=== PATIENT | male | born 1970 | race Caucasian/White ===

== ENCOUNTER 2020-08-28 16:27 | Emergency (ER) | payer SELFPAY ==
[2020-08-28] MEDS ORDERED: Acetaminophen 500 MG Tab PO ONE (18:05)
[2020-08-28] MEDS ORDERED: Ibuprofen 400 MG Tab PO ONE (18:05)
[2020-08-28] MEDS ORDERED: Diphtheria,Pertussis(Acell),Tetanus Vaccine 0.5 ML Syringe IM ONE (18:06)
[2020-08-28] MEDS ORDERED: Tetracaine HCl/PF 0.5% 4 ML Bottle EYEBOTH ONE (18:06)
--- NOTE | 2020-08-28 19:43 | EDM.PDOC ---
ED HPI GENERAL MEDICAL PROBLEM - General Chief Complaint: ENT Problem Stated Complaint: SOMETHING IN EYE Time Seen by Provider: 08/28/20 17:01 Source of Information: Reports: Patient History Limitations: Reports: No Limitations - History of Present Illness INITIAL COMMENTS - FREE TEXT/NARRATIVE: 50/M w/no PMH presenting with chemical injury to R eye. Was working with a muffler sealant when accidentally got this into his R eye. Irrigated immediately on-scene for at least 15 minutes before coming to the ED. Product was muffler sealant, major ingredient sodium silicate. Arrives complaining of decreased vision to R eye with redness and drainage. Does not wear contacts, no prior ophthalmologic surgeries, unknown tetanus status. ROS: A 10-point review of systems was negative, except as noted in the HPI (or in the ROS section of this note). Past medical history: Reviewed, no additional pertinent history. Surgical history: Reviewed in system, no additional pertinent history. Social history: Reviewed in system, no additional pertinent history. Family history: Reviewed in system, no additional pertinent history. PHYSICAL EXAM Vital signs reviewed. Nursing notes reviewed. Constitutional: Awake, alert, non-distressed. Head: Normocephalic, atraumatic. Eyes: R sclera injected and edematous. PERRL @ 3 mm b/l. IOPs 18 OS, 19 OD. Slit lamp shows corneal peeling to R eye, diffuse scattered fluorescein uptake. Lid and lashes normal. R eye able to read signs and name badge. 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 Ears, Nose, Throat: External ears and nose normal, moist oral mucosa. Cardiovascular: 2+ radial pulse, capillary refill less than 2 seconds. Pulmonary: normal work of breathing, no accessory muscle use. Abdomen/GI: Soft, nontender, nondistended, no guarding or rigidity, no masses. Musculoskeletal: No deformities. Integumentary: Appropriate color for ethnicity, warm, dry, no pallor or jaundice, no rash. Neurologic: Alert, answering questions appropriately, normal speech, no facial droop, moving all extremities well. Psychiatric: Appropriate mood and affect, normal thought process. right eye Pain Score (Numeric/FACES): 3 - Related Data Allergies Allergy/AdvReac Type Severity Reaction Status Date / Time No Known Allergies Allergy Verified 08/28/20 17:11 Home Meds: Home Meds Acetaminophen [Acetaminophen Extra Strength] 500 - 1,000 mg PO Q6H PRN #30 tablet 08/28/20 [Rx] Erythromycin Base [Erythromycin 0.5% Ophth Oint] 1 applic OP BEDTIME #1 tube 08/28/20 [Rx] Ketorolac [Acular 0.5% Ophth Soln] 1 drop OP Q4H PRN #1 bottle 08/28/20 [Rx] Sulfacetamide [Bleph-10 Ophth Soln] 1 drop EYERT Q3H #1 bottle 08/28/20 [Rx] Past Medical History - Past Health History Medical/Surgical History: Denies Medical/Surgical History - Infectious Disease History Infectious Disease History: Reports: None Social & Family History - Tobacco Use Smoking Status *Q: Current Every Day Smoker Years of Tobacco use: 20 Packs/Tins Daily: 0.2 - Alcohol Use Days Per Week of Alcohol Use: 4 Number of Drinks Per Day: 4 Total Drinks Per Week: 16 - Recreational Drug Use Recreational Drug Use: No ED ROS ENT - Review of Systems Review Of Systems: See Below ED EXAM, ENT - Physical Exam Exam: See Below Eye Exam: Right Eye: Conjunctival Injection, Corneal Abrasion, Vision Changes, Bilateral Eye: EOMI, PERRL Course - Vital Signs Text/Narrative:: Chemical injury to R eye. Immediately taken to eye wash station, washed for 15 additional minutes while [place] [facility] contacted. Given information on chemical involved. They could not determine if acidic or basic. Recommended usual copious irrigation, ocular pH measurement with goal of 7.0, ophthalmology consultation, etc. Obtained pH of 7.5. Able to count fingers only with right eye, cannot read. Spoke with on-call firearms sales associate Dr. Ayush Borjas who states that the pH of 7.5 is acceptable after total of 30 minutes of irrigation and none further was needed. Recommends obtaining IOPs and slit lamp exam, eye shield, evaluation for corneal abrasion, and he will see the patient in clinic tomorrow morning for follow-up. Tetanus booster given. Tetracaine applied. IOPs normal. Slit lamp exam of right eye shows corneal peeling, patchy diffuse fluorescein uptake. Normal iris and pupil. Vision slightly improved, now able to read with R eye. Eye patch placed per ophthalmology recommendations. Plan to DC home with urgent next-day ophthalmology follow-up. Rx sent for erythromycin ointment, sulfacetamide and ketorolac drops, acetaminophen, ibuprofen. Plan: Patient is stable to discharge home with outpatient ophthalmology clinic follow-up. Strict emergency department return precautions were provided, patient indicated understanding. All questions were answered prior to departure. Discharged in good condition. Last Recorded V/S: Last Vital Signs Temp 36.2 C 08/28/20 17:08 Pulse 92 08/28/20 17:08 Resp 15 08/28/20 17:08 BP 169/89 H 08/28/20 17:08 Pulse Ox 96 08/28/20 17:08 - Orders/Labs/Meds Orders: Active Orders 24 hr Category Date Time Status Vaccines to be Administered [RC] PER UNIT ROUTINE Care 08/28/20 18:06 Active Visual Acuity [Vision Test] [RC] ASDIRECTED Care 08/28/20 17:01 Active Meds: Medications Discontinued Medications Generic Name Dose Route Start Last Admin Trade Name Delgadoq PRN Reason Stop Dose Admin Acetaminophen 1,000 mg 08/28/20 18:05 08/28/20 18:23 Tylenol Extra Strength PO 08/28/20 18:06 1,000 mg ONETIME ONE Administration Diphtheria/Tetanus/Acell Pertussis 0.5 ml 08/28/20 18:06 08/28/20 18:24 Adacel IM 08/28/20 18:07 0.5 ml .ONCE ONE Administration Ibuprofen 400 mg 08/28/20 18:05 08/28/20 18:23 Motrin PO 08/28/20 18:06 400 mg ONETIME ONE Administration Tetracaine HCl 1 ml 08/28/20 18:06 08/28/20 18:23 Tetracaine 0.5% Steri-Unit Marcia EYEBOTH 08/28/20 18:07 1 each ASDIRECTED ONE Administration Departure - Departure Time of Disposition: 19:38 Disposition: Home, Self-Care 01 Condition: Good Clinical Impression: Chemical insult, eye Qualifiers: Encounter type: initial encounter Laterality: right Qualified Code(s): T26.91XA - Corrosion of right eye and adnexa, part unspecified, initial encounter - Discharge Information *PRESCRIPTION DRUG MONITORING PROGRAM REVIEWED*: Not Applicable *COPY OF PRESCRIPTION DRUG MONITORING REPORT IN PATIENT SHAKILA: Not Applicable Prescriptions: Acetaminophen [Acetaminophen Extra Strength] 500 - 1,000 mg PO Q6H PRN #30 tablet PRN Reason: Pain (Mild 1-3) Ketorolac [Acular 0.5% Ophth Soln] 1 drop OP Q4H PRN #1 bottle PRN Reason: Pain (Moderate 4-6) Sulfacetamide [Bleph-10 Ophth Soln] 1 drop EYERT Q3H #1 bottle Erythromycin Base [Erythromycin 0.5% Ophth Oint] 1 applic OP BEDTIME #1 tube Instructions: Chemical Burn of the Eyes, Adult Referrals: Ayush Borjas MD [Ordering Only Provider] - 1 Day (For follow-up eye care.) Forms: ED Department Discharge Additional Instructions: You were seen in the emergency department for a chemical injury to the right eye. We are going to prescribe you an antibiotic eye ointment and antibiotic eyedrops along with painkilling eyedrops and some Tylenol. It is very important you follow-up with the firearms sales associate tomorrow morning. Call the phone number provided for the clinic and Dr. Borjas will tell you when he wants to see you in the morning. Warning signs to come back to the ER include worsening pain or severe vision changes or any other new or concerning symptoms. Please return the emergency department immediately if your symptoms worsen or if you feel worse. Thank you for choosing the [facility] emergency department in [place] for your medical needs today. It was a pleasure caring for you. The following information is given to patients seen in the emergency department who are being discharged. This information is to outline your options for follow-up care. We provide all patients seen in our emergency department with a follow-up referral. The need for follow-up, as well as the timing and circumstances, are variable depending upon the specifics of your emergency department visit. If you don't have a primary care physician on staff, we will provide you with a referral. We always advise you to contact your personal physician following an emergency department visit to inform them of the circumstance of the visit and for follow-up with them and/or the need for any referrals to a consulting specialist. The emergency department will also refer you to a specialist when appropriate. This referral assures that you have the opportunity for follow-up care with a specialist. All of these measure are taken in an effort to provide you with optimal care, which includes your follow-up. Under all circumstances we always encourage you to contact your private physician who remains a resource for coordinating your care. When calling for follow-up care, please make the office aware that this follow-up is from your recent emergency room visit. If for any reason you are refused follow-up, please contact the [facility] Emergency Department at and asked to speak to the emergency department charge nurse. If you do not have a primary care physician that is caring for you, you can contact these clinics below to set up an appointment to establish care: [facility] - Primary Care [address] [place] [id number] [facility] [address] [place] [address] Sepsis Event Note (ED) - Evaluation Sepsis Screening Result: No Definite Risk - Focused Exam Vital Signs: Vital Signs Temp Pulse Resp BP Pulse Ox 08/28/20 17:08 36.2 C 92 15 169/89 H 96 - My Orders Last 24 Hours: My Active Orders 08/28/20 17:01 Visual Acuity [Vision Test] [RC] ASDIRECTED 08/28/20 18:06 Vaccines to be Administered [RC] PER UNIT ROUTINE - Assessment/Plan Last 24 Hours: My Active Orders 08/28/20 17:01 Visual Acuity [Vision Test] [RC] ASDIRECTED 08/28/20 18:06 Vaccines to be Administered [RC] PER UNIT ROUTINE
== END 2020-08-28 19:50 | disposition home or self-care (01) ==
LOC: MW.ED 16:27
DX: T26.91XA Corrosion of right eye and adnexa, part unspecified, initial encounter (principal); F17.210 Nicotine dependence, cigarettes, uncomplicated; Z23 Encounter for immunization
CPT/HCPCS: 90471; 90715; 99283; A9270

== ENCOUNTER 2023-05-12 21:11 | Emergency (ER) | payer SELFPAY | END 2023-05-12 21:44 | LOC: MW.ED 21:11 | DX: F10.10 Alcohol abuse, uncomplicated (principal); Z02.89 Encounter for other administrative examinations | CPT/HCPCS: 99282 ==

== ENCOUNTER 2024-04-21 22:20 | Emergency (ER) | payer MEDICAID ==
[2024-04-21] MEDS: Thiamine 200 MG/2 ML MDV IVPUSH ONE (22:40)
[2024-04-21] MEDS: Sodium Chloride 0.9% 1,000 ML IV ONE (22:40)
[2024-04-21] MEDS: Sodium Chloride 0.9% 10 ML Syringe FLUSH PRN (22:41)
[2024-04-21] MEDS: Sodium Chloride 0.9% 2.5 ML Syringe FLUSH PRN (22:41)
[2024-04-21 22:44] LABS: BASOPHILS ABSOLUTE AUTO 0.04 K/uL (0.00-0.20); BASOPHILS PERCENT AUTO 0.7 % (0.0-1.0); EOSINOPHILS ABSOLUTE AUTO 0.09 K/uL (0.00-0.45); EOSINOPHILS PERCENT AUTO 1.5 % (0.0-6.0); HEMATOCRIT 40.2 % (42.0-52.0); IMMATURE GRAN ABSOLUTE AUTO 0.02 K/uL (0.00-0.05); IMMATURE GRAN PERCENT AUTO 0.3 % (0.0-0.4); LYMPHOCYTES ABSOLUTE AUTO 1.61 K/uL (1.00-4.80); MEAN CORPUSCULAR HEMOGLOBIN 33.9 pg (28.0-32.0); MEAN CORPUSCULAR HGB CONC 34.8 g/dL (32.0-36.0); MEAN CORPUSCULAR VOLUME 97.3 fL (83.0-99.0); MONOCYTES PERCENT AUTO 11.7 % (0.0-8.0); NEUTROPHILS ABSOLUTE AUTO 3.51 K/uL (1.80-7.70); NEUTROPHILS PERCENT AUTO 58.8 % (41.0-71.0); PLATELET COUNT,PLT 113 K/uL (150-400); RED BLOOD CELL COUNT 4.13 M/uL (4.52-5.90); WHITE BLOOD CELL COUNT,WBC 5.97 K/uL (3.9-11.3)
[2024-04-21 22:54] LABS: ALANINE AMINOTRANSFERASE,ALT 118 IU/L (14-63); ALBUMIN 3.7 g/dL (3.4-5.0); ALKALINE PHOSPHATASE 113 U/L (46-116); ASPARTATE AMNIOTRANSFERASE,AST 150 IU/L (15-37); BILIRUBIN TOTAL 0.5 mg/dL (0.2-1.0); BLOOD UREA NITROGEN,BUN 13 mg/dL (7.0-18.0); CALCIUM 9.3 mg/dL (8.5-10.1); CARBON DIOXIDE,CO2 22.8 mmol/L (21.0-32.0); CHLORIDE,CL 98 mmol/L (98-107); CREATININE 1.1 mg/dL (0.8-1.3); EST CRCL DRUG DOSING (CG) 83.73 mL/min; GLUCOSE RANDOM 137 mg/dL (74-106); POTASSIUM,K 3.7 mmol/L (3.5-5.1); PROTEIN TOTAL,TP 7.5 g/dL (6.4-8.2); SODIUM,NA 137 mmol/L (136-148)
[2024-04-21 22:57] LABS: ESTIMATED GFR 80 mL/min (>60); ETHANOL BLOOD MEDICAL < 3.0 mg/dL
[2024-04-21] MEDS: Folic Acid 1 MG Tab PO ONE (23:23)
[2024-04-22 00:01] LABS: APPEARANCE,URINE CLEAR; BILIRUBIN,URINE NEGATIVE (NEGATIVE); COLOR,URINE YELLOW; GLUCOSE,URINE NEGATIVE (NEGATIVE); KETONES,URINE NEGATIVE (NEGATIVE); LEUKOCYTE ESTERASE,URINE NEGATIVE (NEGATIVE); NITRITE,URINE NEGATIVE (NEGATIVE); OCCULT BLOOD,URINE NEGATIVE (NEGATIVE); PROTEIN,URINE 30 mg/dL (NEGATIVE); UROBILINOGEN,URINE 0.2 EU/dL (<2.0)
[2024-04-22 00:05] LABS: AMPHETAMINES SCREEN, URINE NEGATIVE (CUTOFF=500); BARBITURATE SCREEN,URINE NEGATIVE (CUTOFF=200); BENZODIAZEPINES SCREEN,URINE NEGATIVE (CUTOFF=150); BUPRENORPHINE SCREEN,URINE NEGATIVE (CUTOFF=10); METHADONE SCREEN, URINE NEGATIVE (CUTOFF=200); METHAMPHETAMINES SCREEN, URINE NEGATIVE (CUTOFF=500); OXYCODONE SCREEN,URINE NEGATIVE (CUT0FF=100); PCP SCREEN,URINE NEGATIVE (CUTOFF=25); THC SCREEN,URINE 20 NG/ML NEGATIVE (CUTOFF=50)
[2024-04-22 00:13] LABS: RBC,URINE 0-1 (0-2/HPF)
[2024-04-22 00:14] LABS: BACTERIA,URINE RARE (NEGATIVE); EPITHELIAL CELLS,URINE RARE (NONE-FEW); WBC,URINE NONE SEEN (0-5/HPF)
[2024-04-22] MEDS: chlordiazePOXIDE 25 MG Cap PO ONE (00:37)
== END 2024-04-22 00:39 ==
LOC: MW.ED 22:20
DX: S01.01XA Laceration without foreign body of scalp, initial encounter (principal); R56.9 Unspecified convulsions; F10.120 Alcohol abuse with intoxication, uncomplicated; Z79.899 Other long term (current) drug therapy; Z75.8 Other problems related to medical facilities and other health care; X58.XXXA Exposure to other specified factors, initial encounter
CPT/HCPCS: 12001; 36415; 70450; 70450-26; 72125; 72125-26; 80053; 80305-QW; 80307; 81001; 85025; 93005; 96361; 96374; 96375; 99285-25; A9270-GY; J3360; J3411; J3490; J7030

== ENCOUNTER 2024-04-27 08:45 | Inpatient (IN) | payer MEDICAID ==
[2024-04-27 08:58] LABS: BASOPHILS ABSOLUTE AUTO 0.07 K/uL (0.00-0.20); BASOPHILS PERCENT AUTO 1.1 % (0.0-1.0); EOSINOPHILS ABSOLUTE AUTO 0.05 K/uL (0.00-0.45); EOSINOPHILS PERCENT AUTO 0.8 % (0.0-6.0); HEMATOCRIT 38.4 % (42.0-52.0); HEMOGLOBIN 13.5 g/dL (14.0-18.0); IMMATURE GRAN ABSOLUTE AUTO 0.02 K/uL (0.00-0.05); IMMATURE GRAN PERCENT AUTO 0.3 % (0.0-0.4); LYMPHOCYTES ABSOLUTE AUTO 1.88 K/uL (1.00-4.80); LYMPHOCYTES PERCENT AUTO 29.2 % (24.0-44.0); MEAN CORPUSCULAR HGB CONC 35.2 g/dL (32.0-36.0); MEAN CORPUSCULAR VOLUME 96.7 fL (83.0-99.0); MEAN PLATELET VOLUME 9.5 fL (9.4-12.4); MONOCYTES ABSOLUTE AUTO 0.82 K/uL (0.00-0.80); MONOCYTES PERCENT AUTO 12.7 % (0.0-8.0); NEUTROPHILS PERCENT AUTO 55.9 % (41.0-71.0); PLATELET COUNT,PLT 178 K/uL (150-400); RED BLOOD CELL COUNT 3.97 M/uL (4.52-5.90); WHITE BLOOD CELL COUNT,WBC 6.44 K/uL (3.9-11.3)
[2024-04-27] MEDS: Sodium Chloride 0.9% 10 ML Syringe FLUSH PRN (09:12)
[2024-04-27] MEDS: Sodium Chloride 0.9% 2.5 ML Syringe FLUSH PRN (09:12)
[2024-04-27] MEDS: Sodium Chloride 0.9% 1,000 ML IV ONE (09:12)
[2024-04-27] MEDS: Ondansetron 4 MG/2 ML SDV IVPUSH ONE (09:12)
[2024-04-27 09:22] LABS: ACETAMINOPHEN <2.0 ug/mL; ALANINE AMINOTRANSFERASE,ALT 114 IU/L (14-63); ALBUMIN 3.7 g/dL (3.4-5.0); ALKALINE PHOSPHATASE 95 U/L (46-116); ASPARTATE AMNIOTRANSFERASE,AST 65 IU/L (15-37); BILIRUBIN TOTAL 0.3 mg/dL (0.2-1.0); BLOOD UREA NITROGEN,BUN 6 mg/dL (7.0-18.0); CALCIUM 8.9 mg/dL (8.5-10.1); CARBON DIOXIDE,CO2 27.5 mmol/L (21.0-32.0); CHLORIDE,CL 105 mmol/L (98-107); CREATINE KINASE,CK 327 U/L (26-308); CREATININE 0.9 mg/dL (0.8-1.3); EST CRCL DRUG DOSING (CG) 98.21 mL/min; GLUCOSE RANDOM 93 mg/dL (74-106); LIPASE 25 U/L (16-77); MAGNESIUM 1.9 mg/dL (1.8-2.4); POTASSIUM,K 3.8 mmol/L (3.5-5.1); PROTEIN TOTAL,TP 7.4 g/dL (6.4-8.2); SALICYLATE 2.5 mg/dL (0.0-20.0); SODIUM,NA 142 mmol/L (136-148)
[2024-04-27 09:24] LABS: ESTIMATED GFR 101 mL/min (>60)
[2024-04-27] MEDS ORDERED: PHENobarbitaL sodium 260 MG in Sodium Chloride 0.9% 100 ML IV PRN (12:20)
[2024-04-27] MEDS ORDERED: PHENobarbital Sodium 130 MG/ML SDV IVPUSH PRN (12:21)
[2024-04-27] MEDS ORDERED: Thiamine 100 MG in Sodium Chloride 0.9% 100 ML IV SCH (12:30)
[2024-04-27] MEDS ORDERED: Polyethylene Glycol 3350 Powder 17 GM Packet PO PRN (12:35)
[2024-04-27] MEDS ORDERED: Ondansetron 4 MG/2 ML SDV IVPUSH PRN (12:35)
[2024-04-27] MEDS ORDERED: Acetaminophen 325 MG Tab PO PRN (12:35)
[2024-04-27] MEDS ORDERED: Melatonin 3 MG Tab PO PRN (12:35)
[2024-04-27] MEDS ORDERED: PHENobarbital 32.4 MG Tab PO PRN ×3 (12:35→12:38)
[2024-04-27] MEDS: Sodium Chloride 0.9% 1,000 ML IV SCH ×2 (13:03→13:38)
[2024-04-27] MEDS: Pantoprazole 40 MG in Sodium Chloride 0.9% 10 ML IVPUSH SCH (13:04)
[2024-04-27] MEDS: Thiamine 200 MG/2 ML MDV IVPUSH SCH (13:05)
[2024-04-27] MEDS: Folic Acid 1 MG/0.2 ML UD Syringe IV SCH (13:05)
[2024-04-27] MEDS: Heparin Sodium 5,000 Units/ML Vial SUBCUT SCH (20:39)
[2024-04-28 05:50] LABS: BASOPHILS ABSOLUTE AUTO 0.08 K/uL (0.00-0.20); BASOPHILS PERCENT AUTO 1.3 % (0.0-1.0); EOSINOPHILS ABSOLUTE AUTO 0.15 K/uL (0.00-0.45); EOSINOPHILS PERCENT AUTO 2.5 % (0.0-6.0); HEMATOCRIT 36.4 % (42.0-52.0); HEMOGLOBIN 12.6 g/dL (14.0-18.0); IMMATURE GRAN ABSOLUTE AUTO 0.03 K/uL (0.00-0.05); IMMATURE GRAN PERCENT AUTO 0.5 % (0.0-0.4); LYMPHOCYTES ABSOLUTE AUTO 1.51 K/uL (1.00-4.80); LYMPHOCYTES PERCENT AUTO 25.2 % (24.0-44.0); MEAN CORPUSCULAR HEMOGLOBIN 33.8 pg (28.0-32.0); MEAN CORPUSCULAR HGB CONC 34.6 g/dL (32.0-36.0); MEAN CORPUSCULAR VOLUME 97.6 fL (83.0-99.0); MEAN PLATELET VOLUME 9.6 fL (9.4-12.4); NEUTROPHILS ABSOLUTE AUTO 3.32 K/uL (1.80-7.70); NEUTROPHILS PERCENT AUTO 55.5 % (41.0-71.0); PLATELET COUNT,PLT 175 K/uL (150-400); RED BLOOD CELL COUNT 3.73 M/uL (4.52-5.90); WHITE BLOOD CELL COUNT,WBC 5.99 K/uL (3.9-11.3)
[2024-04-28 06:25] LABS: A/G RATIO 0.8 (0.9-1.6); ALBUMIN 2.6 g/dL (3.4-5.0); BILIRUBIN TOTAL 0.6 mg/dL (0.2-1.0); CALCIUM 8.1 mg/dL (8.5-10.1); CARBON DIOXIDE,CO2 29.2 mmol/L (21.0-32.0); CREATININE 0.8 mg/dL (0.8-1.3); EST CRCL DRUG DOSING (CG) 106.87 mL/min; MAGNESIUM 1.7 mg/dL (1.8-2.4); PHOSPHORUS 3.6 mg/dL (2.6-4.7); POTASSIUM,K 4.7 mmol/L (3.5-5.1); PROTEIN TOTAL,TP 5.8 g/dL (6.4-8.2)
[2024-04-28] MEDS: Magnesium Sulfate/Water 2 GM in Premix Bag 1 BAG IV ONE (10:35)
== END 2024-04-28 18:35 | disposition home or self-care (01) | DRG 897 ==
LOC: MW.ED 08:45 → MW.MS 11:58
PROVIDERS: ADMIT Family Medicine; ATTEND Family Medicine
DX: F10.90 Alcohol use, unspecified, uncomplicated (principal); R56.9 Unspecified convulsions; F17.210 Nicotine dependence, cigarettes, uncomplicated
CPT/HCPCS: 36415; 70450; 70450-26; 72125; 72125-26; 80053; 80143; 80179; 80307; 82140; 82550; 83690; 83735; 84100; 84484; 85025; 93005; 93010; 96374; 99222; 99239; 99285; 99285-25; C9113; J1644; J2405; J2560; J3411; J3475; J3490; J7030

== ENCOUNTER 2024-06-17 01:19 | Emergency (ER) | payer MEDICAID ==
[2024-06-17 01:31] LABS: BASOPHILS ABSOLUTE AUTO 0.06 K/uL (0.00-0.20); BASOPHILS PERCENT AUTO 0.5 % (0.0-1.0); EOSINOPHILS PERCENT AUTO 1.8 % (0.0-6.0); HEMATOCRIT 41.2 % (42.0-52.0); HEMOGLOBIN 14.4 g/dL (14.0-18.0); IMMATURE GRAN ABSOLUTE AUTO 0.03 K/uL (0.00-0.05); IMMATURE GRAN PERCENT AUTO 0.3 % (0.0-0.4); LYMPHOCYTES ABSOLUTE AUTO 2.85 K/uL (1.00-4.80); MEAN CORPUSCULAR HEMOGLOBIN 33.3 pg (28.0-32.0); MEAN CORPUSCULAR VOLUME 95.2 fL (83.0-99.0); MEAN PLATELET VOLUME 9.2 fL (9.4-12.4); MONOCYTES ABSOLUTE AUTO 1.21 K/uL (0.00-0.80); MONOCYTES PERCENT AUTO 10.6 % (0.0-8.0); NEUTROPHILS ABSOLUTE AUTO 7.06 K/uL (1.80-7.70); NEUTROPHILS PERCENT AUTO 61.8 % (41.0-71.0); PLATELET COUNT,PLT 208 K/uL (150-400); RED BLOOD CELL COUNT 4.33 M/uL (4.52-5.90); WHITE BLOOD CELL COUNT,WBC 11.41 K/uL (3.9-11.3)
[2024-06-17] MEDS: methylPREDNISolone Sodium Succinate 125 MG/2 ML SDV IVPUSH ONE (01:31)
[2024-06-17] MEDS: Albuterol/Ipratropium 3.0-0.5 MG/3 ML Neb Soln NEB STA (01:31)
[2024-06-17] MEDS: Albuterol/Ipratropium 3.0-0.5 MG/3 ML Neb Soln ONE (01:32)
[2024-06-17 02:15] LABS: A/G RATIO 1.3 (0.9-1.6); ALBUMIN 4.3 g/dL (3.4-5.0); BILIRUBIN TOTAL 0.7 mg/dL (0.2-1.0); CALCIUM 9.1 mg/dL (8.5-10.1); CARBON DIOXIDE,CO2 26.9 mmol/L (21.0-32.0); CREATININE 1.4 mg/dL (0.8-1.3); EST CRCL DRUG DOSING (CG) 61.43 mL/min; MAGNESIUM 2.1 mg/dL (1.8-2.4); POTASSIUM,K 3.5 mmol/L (3.5-5.1); PROTEIN TOTAL,TP 7.7 g/dL (6.4-8.2)
[2024-06-17] MEDS: Sodium Chloride 0.9% 1,000 ML IV ONE (02:31)
== END 2024-06-17 03:20 | disposition home or self-care (01) ==
LOC: MW.ED 01:19
DX: J20.9 Acute bronchitis, unspecified (principal); N17.9 Acute kidney failure, unspecified; Z79.899 Other long term (current) drug therapy
CPT/HCPCS: 36415; 71045; 80053; 83735; 83880; 84484; 85025; 93005; 96361; 96374; 99285; J2919; J7030; 93010; 99284; J7620-GY

== ENCOUNTER 2024-11-17 17:20 | Emergency (ER) | payer MEDICAID ==
[2024-11-17 18:03] LABS: BASOPHILS ABSOLUTE AUTO 0.03 K/uL (0.00-0.20); BASOPHILS PERCENT AUTO 0.4 % (0.0-1.0); EOSINOPHILS ABSOLUTE AUTO 0.06 K/uL (0.00-0.45); EOSINOPHILS PERCENT AUTO 0.8 % (0.0-6.0); HEMATOCRIT 44.1 % (42.0-52.0); HEMOGLOBIN 15.5 g/dL (14.0-18.0); IMMATURE GRAN ABSOLUTE AUTO 0.02 K/uL (0.00-0.05); IMMATURE GRAN PERCENT AUTO 0.3 % (0.0-0.4); LYMPHOCYTES PERCENT AUTO 37.7 % (24.0-44.0); MEAN CORPUSCULAR HEMOGLOBIN 32.4 pg (28.0-32.0); MEAN CORPUSCULAR HGB CONC 35.1 g/dL (32.0-36.0); MEAN CORPUSCULAR VOLUME 92.3 fL (83.0-99.0); MEAN PLATELET VOLUME 9.5 fL (9.4-12.4); MONOCYTES ABSOLUTE AUTO 0.86 K/uL (0.00-0.80); NEUTROPHILS PERCENT AUTO 48.8 % (41.0-71.0); PLATELET COUNT,PLT 175 K/uL (150-400); RED BLOOD CELL COUNT 4.78 M/uL (4.52-5.90); WHITE BLOOD CELL COUNT,WBC 7.17 K/uL (3.9-11.3)
[2024-11-17 18:14] LABS: A/G RATIO 1.1 (0.9-1.6); ALBUMIN 4.1 g/dL (3.4-5.0); BILIRUBIN TOTAL 0.5 mg/dL (0.2-1.0); CALCIUM 9.3 mg/dL (8.5-10.1); CARBON DIOXIDE,CO2 21.8 mmol/L (21.0-32.0); CREATININE 1.1 mg/dL (0.8-1.3); EST CRCL DRUG DOSING (CG) 83.28 mL/min; POTASSIUM,K 3.9 mmol/L (3.5-5.1); PROTEIN TOTAL,TP 7.8 g/dL (6.4-8.2)
[2024-11-17] MEDS: Sodium Chloride 0.9% 1,000 ML IV ONE (18:23)
[2024-11-17 18:33] LABS: APPEARANCE,URINE CLEAR; BILIRUBIN,URINE NEGATIVE (NEGATIVE); COLOR,URINE YELLOW; GLUCOSE,URINE NEGATIVE (NEGATIVE); KETONES,URINE NEGATIVE (NEGATIVE); LEUKOCYTE ESTERASE,URINE NEGATIVE (NEGATIVE); NITRITE,URINE NEGATIVE (NEGATIVE); OCCULT BLOOD,URINE NEGATIVE (NEGATIVE); PROTEIN,URINE 30 mg/dL (NEGATIVE); UROBILINOGEN,URINE 0.2 EU/dL (<2.0)
[2024-11-17 18:43] LABS: EPITHELIAL CELLS,URINE NOT SEEN (NONE-FEW); RBC,URINE 0-2 (0-2/HPF); WBC,URINE 0-1 (0-5/HPF)
[2024-11-17 18:44] LABS: BACTERIA,URINE RARE (NEGATIVE); MUCUS,URINE LIGHT (NONE-MOD)
== END 2024-11-17 19:23 | disposition home or self-care (01) ==
LOC: EDBD → MERGE 17:20 → MW.ED 17:20
DX: R56.9 Unspecified convulsions (principal); Z75.8 Other problems related to medical facilities and other health care
CPT/HCPCS: 36415; 70450; 72125; 80053; 80307; 81001; 82947; 83605; 85025; 96361; 96374; 99284; J1953; J7030

== ENCOUNTER 2025-03-29 03:44 | Emergency (ER) | payer MEDICAID ==
[2025-03-29 04:25] LABS: BASOPHILS ABSOLUTE AUTO 0.06 K/uL (0.00-0.20); BASOPHILS PERCENT AUTO 0.7 % (0.0-1.0); EOSINOPHILS ABSOLUTE AUTO 0.09 K/uL (0.00-0.45); EOSINOPHILS PERCENT AUTO 1.1 % (0.0-6.0); HEMATOCRIT 41.9 % (42.0-52.0); HEMOGLOBIN 14.7 g/dL (14.0-18.0); IMMATURE GRAN ABSOLUTE AUTO 0.03 K/uL (0.00-0.05); IMMATURE GRAN PERCENT AUTO 0.4 % (0.0-0.4); LYMPHOCYTES ABSOLUTE AUTO 2.83 K/uL (1.00-4.80); LYMPHOCYTES PERCENT AUTO 35.3 % (24.0-44.0); MEAN CORPUSCULAR HEMOGLOBIN 32.2 pg (28.0-32.0); MEAN CORPUSCULAR HGB CONC 35.1 g/dL (32.0-36.0); MEAN CORPUSCULAR VOLUME 91.7 fL (83.0-99.0); MEAN PLATELET VOLUME 9.1 fL (9.4-12.4); MONOCYTES ABSOLUTE AUTO 0.44 K/uL (0.00-0.80); MONOCYTES PERCENT AUTO 5.5 % (0.0-8.0); NEUTROPHILS ABSOLUTE AUTO 4.56 K/uL (1.80-7.70); PLATELET COUNT,PLT 168 K/uL (150-400); RED BLOOD CELL COUNT 4.57 M/uL (4.52-5.90); WHITE BLOOD CELL COUNT,WBC 8.01 K/uL (3.9-11.3)
[2025-03-29 04:46] LABS: BLOOD UREA NITROGEN,BUN 12 mg/dL (7.0-18.0); CALCIUM 9.1 mg/dL (8.5-10.1); CARBON DIOXIDE,CO2 28.3 mmol/L (21.0-32.0); CHLORIDE,CL 102 mmol/L (98-107); ESTIMATED GFR 89 mL/min (>60); ETHANOL BLOOD MEDICAL 201 mg/dL; GLUCOSE RANDOM 112 mg/dL (74-106); POTASSIUM,K 3.9 mmol/L (3.5-5.1); SODIUM,NA 140 mmol/L (136-148)
[2025-03-29] MEDS: Diphtheria,Pertussis(Acell),Tetanus Vaccine 0.5 ML Syringe IM ONE (04:51)
[2025-03-29] MEDS: Acetaminophen 325 MG Tab PO ONE (04:51)
[2025-03-29] MEDS: Lidocaine 1% 5 ML VIAL INJECT ONE (04:52)
[2025-03-29] MEDS: Cephalexin 500 MG Cap PO ONE (05:07)
== END 2025-03-29 05:18 | disposition home or self-care (01) ==
LOC: MW.ED 03:44
DX: S01.01XA Laceration without foreign body of scalp, initial encounter (principal); S01.81XA Laceration without foreign body of other part of head, initial encounter; S40.811A Abrasion of right upper arm, initial encounter; S40.812A Abrasion of left upper arm, initial encounter; S80.812A Abrasion, left lower leg, initial encounter; S80.811A Abrasion, right lower leg, initial encounter; S80.212A Abrasion, left knee, initial encounter; S80.211A Abrasion, right knee, initial encounter; F10.129 Alcohol abuse with intoxication, unspecified; Z23 Encounter for immunization; Y04.8XXA Assault by other bodily force, initial encounter
CPT/HCPCS: 12011; 36415; 70450; 70486; 80048; 80307; 85025; 90471; 90715; 99284; A9270; J2003; 99283

== ENCOUNTER 2025-04-23 13:31 | Emergency (ER) | payer MEDICAID ==
[2025-04-23] MEDS: Bacitracin Oint 1 GM U/D Packet TOP ONE (14:01)
== END 2025-04-23 14:28 | disposition home or self-care (01) ==
LOC: MW.ED 13:31
DX: S01.01XD Laceration without foreign body of scalp, subsequent encounter (principal); R03.0 Elevated blood-pressure reading, without diagnosis of hypertension; X58.XXXD Exposure to other specified factors, subsequent encounter
CPT/HCPCS: 99282; 99283